=== PATIENT | female | born 1985 | race Caucasian/White ===

== ENCOUNTER → 2020-05-17 | Outpatient (CLI) | payer MEDICAID ==
[~2020-05-17] MED LIST: AMIT25TA9 PO; BPR100TCR PO; DESV100T PO; DEXT10TA9 PO; HYDR-2890 PO; HYDR118S10 PO; IBP800T PO; LEVO125T6 PO; LORA0.5T PO; LVT.15T PO; MELA1TAB16 PO; MNTL10T PO; NF-AMPE5T PO; PARO20TA57 PO; PRX20T PO; [UNRECOGNIZED DRUG - CODE] IJ
--- NOTE | 2020-05-17 16:56 | Diagnostic Imaging Report ---
Clinical indications: Patient with chronic low back pain getting worse. Exam: MRI of the lumbar spine performed without IV contrast. Sagittal T2, sagittal T1, sagittal T2 fat-sat, and axial T2. Comparison: MRI of the lumbar spine performed without IV contrast dated 07/01/2014. Findings: There is interval development of a 11 mm cyst involving the midportion of the right kidney. Five lumbar type vertebra are identified. Lumbar spine has normal alignment with no fracture or dislocation. The lumbar vertebra have normal T1 and T2 signal. The visualized portions of the distal spinal cord, conus medullaris, and cauda equina have normal anatomic appearance. The conus medullaris tip is not imaged on the axial T2 sequence, but the conus medullaris tip is not seen below the L1-L2 intervertebral body level. Otherwise, the visualized portions of the distal spinal cord, conus medullaris, and cauda equina have normal anatomic appearance. There is no significant central spinal canal or neural foramen narrowing. The intervertebral disk spaces are well-preserved. L1-L2: Unremarkable. L2-L3: Unremarkable. L3-L4: Unremarkable. L4-L5: There is interval decreased size of the previously seen small posterior disk herniation with residual minimal posterior disk bulge. There is a residual small annular tear remaining. There is no significant central canal or neural foramen narrowing seen. Stable mild bilateral facet arthropathy. L5-S1: Stable mild bilateral facet arthropathy. Impression: 1: There is decreased size of the previously seen L4-L5 small posterior disk herniation with residual minimal posterior disk bulge and small annular tear. There is no significant central spinal canal or neural foramen narrowing. 2: Otherwise, stable mild lower lumbar spine facet changes. 3: Interval development of a small right renal cyst. Dictated by: Dictated on workstation # [id number]
== END ==
LOC: RAD 15:30
PROVIDERS: ATTEND Physician Assistant
DX: M51.36 Other intervertebral disc degeneration, lumbar region (principal); N28.1 Cyst of kidney, acquired
CPT/HCPCS: 72148

== ENCOUNTER 2022-06-19 17:09 | Emergency (ER) | payer MEDICAID ==
[~2022-06-19] VITALS: Ht 152 cm; Wt 90.7 kg
[2022-06-19 17:48] LABS: BASOPHILS # (AUTO) 0.1 10^3/uL (0.0-0.1); BASOPHILS % (AUTO) 1 % (0-10); EOSINOPHILS # (AUTO) 0.2 10^3/uL (0.0-0.3); EOSINOPHILS % (AUTO) 2 % (0-10); HEMATOCRIT 41 % (35-52); HEMOGLOBIN 14.2 g/dL (11.5-16.0); LYMPHOCYTES # (AUTO) 4.7 10^3/uL (1.0-4.0); LYMPHOCYTES % (AUTO) 36 % (12-44); MEAN CORPUSCULAR HEMOGLOBIN 29 pg (25-34); MEAN CORPUSCULAR HGB CONC 35 g/dL (32-36); MEAN CORPUSCULAR VOLUME 85 fL (80-99); MEAN PLATELET VOLUME 10.3 fL (9.0-12.2); MONOCYTES # (AUTO) 0.8 10^3/uL (0.0-1.0); MONOCYTES % (AUTO) 6 % (0-12); NEUTROPHILS # (AUTO) 7.1 10^3/uL (1.8-7.8); NEUTROPHILS % (AUTO) 55 % (42-75); PLATELET COUNT 364 10^3/uL (130-400)
[2022-06-19 17:49] LABS: ALBUMIN 4.3 GM/DL (3.2-4.5); POTASSIUM 4.1 MMOL/L (3.6-5.0)
[2022-06-19 17:50] LABS: CALCIUM 9.2 MG/DL (8.5-10.1)
[2022-06-19 17:52] LABS: TOTAL PROTEIN 7.7 GM/DL (6.4-8.2)
[2022-06-19 17:53] LABS: BILIRUBIN,TOTAL 0.3 MG/DL (0.1-1.0); INR 0.9 (0.8-1.4); PROTHROMBIN TIME PATIENT 12.3 SEC (12.2-14.7)
[2022-06-19 17:55] LABS: CREATININE SERUM 0.79 MG/DL (0.60-1.30)
[2022-06-19 17:58] LABS: MAGNESIUM 2.2 MG/DL (1.6-2.4)
[2022-06-19 18:09] LABS: CREATINE KINASE MB 1.6 NG/ML (<6.6)
[2022-06-19 18:22] LABS: BILIRUBIN,URINE NEGATIVE (NEGATIVE); CLARITY,URINE CLEAR; COLOR,URINE YELLOW; GLUCOSE, URINE (UA) NEGATIVE (NEGATIVE); KETONES,URINE NEGATIVE (NEGATIVE); LEUKOCYTE ESTERASE ,URINE NEGATIVE (NEGATIVE); NITRITE,URINE NEGATIVE (NEGATIVE); PH,URINE 6.5 (5-9); PROTEIN,URINE NEGATIVE (NEGATIVE)
--- NOTE | 2022-06-19 18:22 | Diagnostic Imaging Report ---
INDICATION: Chest pain. COMPARISON: None available. TECHNIQUE: Single radiograph of the chest dated June 19, 2022. FINDINGS: The cardiac silhouette is within normal limits in size. No significant pulmonary vascular congestion. The lungs are clear of focal pulmonary opacity. No pleural effusion. No pneumothorax. No acute osseous abnormality. IMPRESSION: No acute cardiopulmonary abnormality. Dictated by: Dictated on workstation # [id number]
--- NOTE | 2022-06-19 18:31 | ED Cardiac General ---
History of Present Illness General Chief Complaint: Chest Pain Stated Complaint: CHEST PAIN,LT SIDE JAW PAIN Nursing Triage Note: PT PRESENTS TO ED VIA POV FROM HOME WITH COMPLAINTS OF INTERMITTENT CP X 1 1/2 WEEKS. PT REPORTS INCREASED SOA AND L JAW NUMBNESS STARTING TODAY. 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 Allergies and Home Medications Allergies Coded Allergies: No Known Drug Allergies (Verified , 06/25/07) Patient Home Medication List Amitriptyline Hcl (Amitriptyline Hcl) 25 Mg Tablet, 1 EACH PO DAILY, (Reported) Entered as Reported by: CARLY URRUTIA on 03/26/141927 Bupropion Hcl (Wellbutrin Sr) 100 Mg Tablet, 1 TAB PO BID, (Reported) Entered as Reported by: CARLY URRUTIA on 03/26/141927 Desvenlafaxine Succinate (Pristiq) 100 Mg Tab.sr.24h, 100 MG PO BID, (Reported) Entered as Reported by: CARLY URRUTIA on 03/26/141927 Dextroamphetamine/Amphetamine (Adderall) 10 Mg Tab, 25 MG PO AM AND NOON, (Reported) Entered as Reported by: SITA ESQUIVEL on 12/19/111212 Hydrocodone Bit/Acetaminophen (Hydrocodon-Acetaminophn 10-325) 1 Each Tablet, 1 EACH PO, (Reported) Entered as Reported by: CARLY URRUTIA on 03/26/141927 Ibuprofen (Motrin) 800 Mg Tab, 800 MG PO Q8HR PRN Prescribed by: FARZANA HERNADEZ on 12/06/122122 Levothyroxine Sodium (Levothyroxine 150 Mcg Tab) 150 Mcg Tablet, 350 MCG PO DAILY, (Reported) Entered as Reported by: SITA ESQUIVEL on 12/19/111212 Lorazepam (Ativan) 0.5 Mg Tablet, 0.5 MG PO BID, (Reported) Entered as Reported by: CARLY URRUTIA on 03/26/141927 Montelukast Sodium (Singulair 10 Mg) 10 Mg Tablet, 1 TAB PO DAILY, (Reported) Entered as Reported by: CARLY URRUTIA on 03/26/141927 Past Pnoqnnm-Mzpohd-Hnbcdp Hx Patient Social History Tobacco Use?: No Smokeless Tobacco Frequency: Never a User Use of E-Cig and/or Vaping Pancho: Never a User Substance use?: No Alcohol Use?: No Pt feels they are or have been: No Immunizations Up To Date Tetanus Booster (TDap): Less than 5yrs Seasonal Allergies Seasonal Allergies: No Past Medical History Surgery/Hospitalization HX: PMH: HYPOTHYROIDISM, HIGH CHOL Reproductive Disorders: No Sexually Transmitted Disease: No Hypothyroidsim ADD/ADHD Physical Exam Vital Signs Vital Signs - First Documented 06/19/22 17:14 Temp 36.6 Pulse 79 Resp 24 B/P (MAP) 168/92 (117) Pulse Ox 98 Capillary Refill : NONE Height, Weight, BMI Height: 5'4" Weight: 167lbs. oz. 75.192219oc; 39.00 BMI Method:Stated Progress/Results/Core Measures Results/Orders Lab Results Laboratory Tests Test 06/19/22 17:30 06/19/22 17:59 06/19/22 18:05 Range/Units White Blood Count 13.0 H 4.3-11.0 10^3/uL Red Blood Count 4.86 3.80-5.11 10^6/uL Hemoglobin 14.2 11.5-16.0 g/dL Hematocrit 41 35-52 % Mean Corpuscular Volume 85 80-99 fL Mean Corpuscular Hemoglobin 29 25-34 pg Mean Corpuscular Hemoglobin Concent 35 32-36 g/dL Red Cell Distribution Width 13.2 10.0-14.5 % Platelet Count 364 130-400 10^3/uL Mean Platelet Volume 10.3 9.0-12.2 fL Immature Granulocyte % (Auto) 2 % Neutrophils (%) (Auto) 55 42-75 % Lymphocytes (%) (Auto) 36 12-44 % Monocytes (%) (Auto) 6 0-12 % Eosinophils (%) (Auto) 2 0-10 % Basophils (%) (Auto) 1 0-10 % Neutrophils # (Auto) 7.1 1.8-7.8 10^3/uL Lymphocytes # (Auto) 4.7 H 1.0-4.0 10^3/uL Monocytes # (Auto) 0.8 0.0-1.0 10^3/uL Eosinophils # (Auto) 0.2 0.0-0.3 10^3/uL Basophils # (Auto) 0.1 0.0-0.1 10^3/uL Immature Granulocyte # (Auto) 0.2 H 0.0-0.1 10^3/uL Prothrombin Time 12.3 12.2-14.7 SEC INR Comment 0.9 0.8-1.4 Activated Partial Thromboplast Time 34 24-35 SEC D-Dimer <= 0.27 0.00-0.49 UG/ML Sodium Level 139 135-145 MMOL/L Potassium Level 4.1 3.6-5.0 MMOL/L Chloride Level 104 98-107 MMOL/L Carbon Dioxide Level 22 21-32 MMOL/L Anion Gap 13 5-14 MMOL/L Blood Urea Nitrogen 13 7-18 MG/DL Creatinine 0.79 0.60-1.30 MG/DL Estimat Glomerular Filtration Rate 98 BUN/Creatinine Ratio 16 Glucose Level 93 70-105 MG/DL Calcium Level 9.2 8.5-10.1 MG/DL Corrected Calcium 9.0 8.5-10.1 MG/DL Magnesium Level 2.2 1.6-2.4 MG/DL Total Bilirubin 0.3 0.1-1.0 MG/DL Aspartate Amino Transf (AST/SGOT) 20 5-34 U/L Alanine Aminotransferase (ALT/SGPT) 27 0-55 U/L Alkaline Phosphatase 91 40-136 U/L Total Creatine Kinase 139 29-168 U/L Creatine Kinase MB 1.6 <6.6 NG/ML Myoglobin 45.0 10.0-92.0 NG/ML Troponin I < 0.028 <0.028 NG/ML B-Type Natriuretic Peptide < 10.0 <100.0 PG/ML Total Protein 7.7 6.4-8.2 GM/DL Albumin 4.3 3.2-4.5 GM/DL Lipase 17 8-78 U/L Glucometer 97 70-110 MG/DL Urine Color YELLOW Urine Clarity CLEAR Urine pH 6.5 5-9 Urine Specific Wells 1.020 1.016-1.022 Urine Protein NEGATIVE NEGATIVE Urine Glucose (UA) NEGATIVE NEGATIVE Urine Ketones NEGATIVE NEGATIVE Urine Nitrite NEGATIVE NEGATIVE Urine Bilirubin NEGATIVE NEGATIVE Urine Urobilinogen 0.2 < = 1.0 MG/DL Urine Leukocyte Esterase NEGATIVE NEGATIVE Urine RBC (Auto) 2+ H NEGATIVE Urine RBC 5-10 H /HPF Urine WBC 2-5 /HPF Urine Squamous Epithelial Cells 2-5 /HPF Urine Crystals NONE /LPF Urine Bacteria FEW H /HPF Urine Casts NONE /LPF Urine Mucus NEGATIVE /LPF Urine Culture Indicated YES My Orders Orders - COURTNEY ESTEBAN APRN Cbc With Automated Diff (06/19/22 17:38) Magnesium (06/19/22 17:38) Chest 1 View, Ap/Pa Only (06/19/22 17:38) Comprehensive Metabolic Panel (06/19/22 17:38) Myoglobin Serum (06/19/22 17:38) Protime With Inr (06/19/22 17:38) Partial Thromboplastin Time (06/19/22 17:38) O2 (06/19/22 17:38) Monitor-Rhythm Ecg Trace Only (06/19/22 17:38) Ed Iv/Invasive Line Start (06/19/22 17:38) Creatine Kinase (06/19/22 17:38) Creatine Kinase Mb (06/19/22 17:38) Lipase (06/19/22 17:38) Bnp [place] (06/19/22 17:38) Fibrin Degradation Products (06/19/22 17:38) Troponin I [place] (06/19/22 17:38) Ua Culture If Indicated (06/19/22 17:38) Ekg Tracing (06/19/22 17:38) Accucheck Stat ONCE (06/19/22 17:38) Ed Iv/Invasive Line Start (06/19/22 17:38) Ed Iv/Invasive Line Start (06/19/22 17:38) Vital Signs Stroke Patient Q15M (06/19/22 17:38) Ct Head Wo-R/O Stroke (06/19/22 17:38) O2 (06/19/22 17:38) Intake & Output 06,14,22 (06/19/22 17:38) Dysphagia Screening Tool [id number] (06/19/22 17:38) Post Thrombolytic Adminstratio (06/19/22 17:38) Lipid Panel (06/20/22 06:00) Morphine Injection (Morphine Injection (06/19/22 18:38) Urine Culture (06/19/22 18:05) Lidocaine 2% Viscous 15 Ml (Xylocaine Vi (06/19/22 19:30) Antacid Suspension (Mylanta Suspension (06/19/22 19:30) Medications Given in ED Current Medications Medications Dose Ordered Sig/Navjot Route Start Time Stop Time Status Last Admin Dose Admin Al Hydrox/Mg Hydrox/Simethicone 30 ml ONCE ONCE PO 06/19/22 19:30 06/19/22 19:31 DC 06/19/22 19:36 30 ML Lidocaine HCl 15 ml ONCE ONCE PO 06/19/22 19:30 06/19/22 19:31 DC 06/19/22 19:36 15 ML Vital Signs/I&O 06/19/22 17:14 Temp 36.6 Pulse 79 Resp 24 B/P (MAP) 168/92 (117) Pulse Ox 98 Blood Pressure Mean: 117 FSBG Bedside Testing Finger Stick Blood Glucose: 97 Departure Impression Primary Impression: Chest pain due to gastrointestinal reflux disease Additional Impression: Facial paresthesia Disposition: HOME, SELF-CARE Condition: Improved Departure-Patient Inst. Decision time for Depature: 19:54 Referrals: GERI PEARL (PCP/Family) Primary Care Physician Patient Instructions: Acid Reflux, Adult and Adolescent ED Add. Discharge Instructions: Plan: 1. Take Pepcid by mouth twice a day for the next 2 weeks to see if this improves your symptoms. Avoid spicy overly seasoned foods. 2. If you have any drooping of your face or any motor weakness of your legs or arms return to the emergency department. 3. Call [facility] tomorrow to schedule close follow-up. 4. Return to the ER for any new, concerning, worsening symptoms. All discharge instructions reviewed with patient and/or family. Voiced understanding. Scripts Famotidine (Pepcid) 20 Mg Tablet 20 MG PO BID for 14 Days, #30 TAB 0 Refills Prov: COURTNEY ESTEBAN CAREER GUIDANCE TECHNICIAN 06/19/22 COURTNEY ESTEBAN CAREER GUIDANCE TECHNICIAN Jun 19, 2022 18:31
[2022-06-19] MEDS ORDERED: morphine INJ 10 MG/ML 1ML (SYR OR VIAL) IVP STA (18:38)
[2022-06-19 18:42] LABS: BACTERIA,URINE FEW /HPF
--- NOTE | 2022-06-19 18:44 | Diagnostic Imaging Report ---
CLINICAL INDICATIONS: Patient complains of intermittent chest pain x1-1/2 weeks. Patient reports increased shortness of air, left jaw numbness starting today. EXAM: Axial CT scan of the brain performed without IV contrast. High-resolution axial CT brain images with sagittal and coronal reformations were also created. Auto Exposure Controls were utilized during the CT exam to meet ALARA standards for radiation dose reduction. COMPARISON: None. FINDINGS: There is no evidence of acute cerebral infarct, intracranial hemorrhage, or gross mass effect. The brain parenchymal volume appears appropriate for patient's age. There is normal hare-white matter distinction. There is no significant midline shift or herniation. There is no evidence of hydrocephalus. The basal cisterns are unremarkable. The skull, extracranial soft tissue, and orbits are unremarkable. The paranasal sinuses are unremarkable. Temporal bones show no significant abnormality. IMPRESSION: 1: Unremarkable CT scan of the brain. 2: Results of this report was discussed with Darline Roper APRN via the telephone on 06/19/2022 at 1835 hours. Dictated by: Dictated on workstation # [id number]
[2022-06-19] MEDS ORDERED: ANTACID SUSP 30 ML UDC (MYLANTA) PO ONE (19:30)
[2022-06-19] MEDS ORDERED: LIDOCAINE 2% VISCOUS 15 ML UDC PO ONE (19:30)
[2022-06-19] MEDS ORDERED: FAMO-119 PO (19:55)
[2022-06-19 20:05] VITALS: BP 125/84
== END 2022-06-19 20:05 | disposition home or self-care (01) ==
LOC: EDUNIT# 17:09 → ER 17:12
DX: K21.9 Gastro-esophageal reflux disease without esophagitis (principal); R20.2 Paresthesia of skin
CPT/HCPCS: 36415; 70450; 71045; 80053; 81000; 82550; 82553; 82947; 83690; 83735; 83874; 83880; 84484; 85025; 85379; 85610; 85730; 87077; 87088; 93005; 93041